=== PATIENT | female | born 1965 | race Hispanic/Latino ===

== ENCOUNTER → 2022-07-22 | Outpatient (CLI) | payer OTHER ==
[2022-07-22 16:51] LABS: ALBUMIN 3.7 g/dL (3.5-5.0); POTASSIUM 3.8 mmol/L (3.5-5.1); TOTAL PROTEIN, SERUM 7.8 g/dL (6.0-8.3)
== END | disposition home or self-care (01) ==
LOC: LAB 15:38
PROVIDERS: ATTEND Internal Medicine
DX: I87.2 Venous insufficiency (chronic) (peripheral) (principal)
CPT/HCPCS: 36415; 80053

== ENCOUNTER → 2022-07-28 | Outpatient (CLI) | payer OTHER | END | disposition home or self-care (01) | LOC: RAH 08:27 | PROVIDERS: ATTEND Internal Medicine | DX: M47.815 Spondylosis without myelopathy or radiculopathy, thoracolumbar region (principal); R07.9 Chest pain, unspecified | CPT/HCPCS: 75574 ==

== ENCOUNTER → 2022-11-17 | Outpatient (CLI) | payer OTHER | END | disposition home or self-care (01) | LOC: SHCH 13:09 | PROVIDERS: ATTEND Internal Medicine Cardiovascular Disease | DX: I87.2 Venous insufficiency (chronic) (peripheral) (principal); Z98.890 Other specified postprocedural states | CPT/HCPCS: 93971 ==

== ENCOUNTER 2024-11-28 07:47 | Day surgery (SDC) | payer OTHER, SELFPAY ==
[2024-11-25 13:46] LABS: IMMATURE GRANULOCYTE ABSOLUTE 0.02 K/uL (0-1); NUCLEATED RED BLOOD CELLS 0.0 % (0.0-0.19); PLATELET COUNT (AUTO) 301 K/uL (130-400); RED BLOOD CELL COUNT(AUTO) 4.07 MIL/uL (4.00-5.50); RED CELL DISTRIBUTION WIDTH 12.8 % (11.0-15.5); WHITE BLOOD COUNT (AUTO) 8.2 K/uL (4.8-10.8)
[2024-11-25 13:47] VITALS: BP 108/54; PULSE 64; RESP 13; TEMP 97.4
--- NOTE | 2024-11-25 13:52 | EKG ---
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
[2024-11-25 13:55] LABS: APPEARANCE,URINE CLEAR (CLEAR); GLUCOSE, URINE (UA) NEGATIVE (NEGATIVE); LEUKOCYTE ESTERASE ,URINE NEGATIVE Leu/uL (NEGATIVE); NITRATE,URINE NEGATIVE (NEGATIVE); OCCULT BLOOD,URINE NEGATIVE (NEGATIVE)
[2024-11-25 13:55] LABS: CREATININE 1.1 mg/dL (0.5-1.0); GLOMERULAR FILTR. RATE CALC 57.0 mL/min (>90); GLUCOSE,RANDOM 135.0 mg/dL (70-105); SODIUM SERUM 137.0 mmol/L (136-145); UREA NITROGEN, BLOOD 17.0 mg/dL (7-18)
[2024-11-25 13:57] LABS: INR 1.05 (0.85-1.15)
[2024-11-25 14:06] LABS: ADD UA MICROSCOPIC NO
--- NOTE | 2024-11-25 14:43 | HMCIMG ---
CHEST 1VW REASON: PRE OP COMPARISON: None. FINDINGS: Single view of the chest was obtained. Lungs are clear. Heart size is normal. There is no pulmonary vascular congestion. Mediastinum and bony thorax appear unremarkable. IMPRESSION: 1. Normal single view chest x-ray.
[~2024-11-28] VITALS: Ht 152.4 cm; Wt 94.1 kg
[2024-11-28] VITALS (8 sets, daily range): BP systolic 74–120; BP diastolic 52–68; PULSE 48–67; RESP 14–18; TEMP 97.2–97.4
[~2024-11-28 07:47] MED LIST: ASCO10004 PO; ASPI-1197 PO; CHOL500051 PO; CYAN250010 PO; LORA5TAB9 PO; OLME-31 PO; TOLT2TAB20 PO; VIBE75TA PO
[2024-11-28] MEDS: 0.9%NACL 1000ML 1,000 ML IV SCH (08:45)
[2024-11-28] MEDS ORDERED: LIDOCAINE HCL 400MG/20ML VIAL ONE (12:42)
[2024-11-28] MEDS ORDERED: IODIXANOL 320 MG/ML 100 ML VIAL ONE (12:43)
[2024-11-28] MEDS ORDERED: HEParin-NS 1,000 UNIT/500 ML 1,000 ML IV ONE (12:43)
[2024-11-28] MEDS ORDERED: MIDAZOLAM HCL 1 MG/ML 2ML VIAL ONE (12:48)
--- NOTE | 2024-11-28 13:38 | PRN ---
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 Time-out was performed. Conscious sedation was administered by independent qualified asset availability leader RN under my direct supervision and there were no complications secondary to anesthesia. She received a total of 1 mg of Versed and 50 mcg of fentanyl. Left common femoral vein was accessed using micropuncture technique under fluoroscopic and ultrasound guidance with placement of nine [place] short sheath with the assistance from Amplatz super stiff wire after localization with lidocaine. Venography was performed through the sheath side port of the IVC, common femoral and external iliac vein. Intravascular ultrasound was advanced and intravascular ultrasound was performed of the IVC, left common iliac vein, left external iliac vein. We were unable to advance the five [place] omni flush over the glidewire into the right system, therefore access was also obtained of the right common femoral vein. Using fluoroscopic and ultrasound guidance after localization with lidocaine, nine [place] sheath was placed using micropuncture technique. Venography was performed through the sheath side port of the IVC, common femoral and external iliac vein. Intravascular ultrasound was advanced and intravascular ultrasound was performed of the IVC, Right common iliac vein, Right external iliac vein. The images were reviewed. Bilateral sheaths were removed and hemostasis achieved with use of Vascade. The patient tolerated the procedure well without immediate complications. FINDINGS: 36 % compression of right common iliac vein, compressed diameter 12.5 mm, reference 14 mm 39% compression right external iliac vein, compressed diameter 11 mm, reference 12.5 mm 27% impression right common femoral vein, compressed diameter 9.5 mm, reference diameter 10 mm Inferior vena cava reference diameter 18.5 mm 17% compression left common iliac vein, compressed diameter 15.5 mm, reference diameter 17.5 mm 30% compression left external iliac vein, compressed diameter 11.5 mm, reference diameter 12.5 mm 36% compression left common femoral vein, compress diameter 10 mm, reference 13 mm CONTRAST: 20 cc SUMMARY: Medical Therapy ANDRES DINH DO Nov 28, 2024 13:38
[2024-11-28] MEDS ORDERED: 0.9%NACL 1000ML 1,000 ML IV SCH (14:00)
--- NOTE | 2024-11-28 14:35 | NUR ---
REPORT: REPORT GIVEN TO TRINA FAM RN
== END 2024-11-28 16:05 | disposition home or self-care (01) ==
LOC: DAH 07:47
PROVIDERS: ATTEND Internal Medicine
DX: I87.2 Venous insufficiency (chronic) (peripheral) (principal); E03.9 Hypothyroidism, unspecified; I10 Essential (primary) hypertension; E11.9 Type 2 diabetes mellitus without complications; R60.0 Localized edema; E66.01 Morbid (severe) obesity due to excess calories; Z68.41 Body mass index [BMI] 40.0-44.9, adult; Z79.890 Hormone replacement therapy; Z79.01 Long term (current) use of anticoagulants; Z79.899 Other long term (current) drug therapy; Z79.82 Long term (current) use of aspirin; Z98.890 Other specified postprocedural states
CPT/HCPCS: 80048; 83880; 85025; 85610; 85730; 81003; 36415; 71045; 93005; 75822; 36005; 37252; 37253 ×5; 99156; 99157 ×4; A4223 ×3; C1769 ×2; C1894 ×4; C1760 ×2; C1753; J3010 ×2; J3490; J7030; J2250; J1644; Q9967; A4215; A4222; A4221; A4663; A4216; A4606; 96360; 96361